=== PATIENT | female | born 1975 | race Caucasian/White ===

== ENCOUNTER 2017-01-11 15:11 | Emergency (ER) | payer MEDICAID ==
[~2017-01-11] VITALS: Ht 160 cm; Wt 70.3 kg
--- NOTE | ~2017-01-11 | CR63 ---
[facility]. [facility] A Service [facility] RADIOLOGY TEXT RESULTS PATIENT: KIMI MURGUIA LOCATION: SED : 77 UNIT #: [id number] AGE: [address]: Savannah Phelps MD SEX: F ORDER DR: [id number] [place] [id number] MR#: [id number] Acc #: [id number] NAME: KIMI MURGUIA : 1975 SEX: F STUDY DATE/TIME: 01/11/2017 16:20 UNIT: SED ROOM: STUDY DESCRIPTION: CR Chest 2 View Attending Physician: Savannah Phelps M.D. Ordering Physician: Savannah Phelps M.D. Primary Care Physician: Rosalina Emmanuel M.D. MEDICAL IMAGING REPORT This report is preliminary unless electronic signature is present. EXAM PA and lateral chest, 01/11 COMPARISON 04/14/2016 INDICATIONS Cough, fever, back pain for 3 days. FINDINGS PA and lateral examination of the chest upright shows a good expansion of the parenchyma with a normal distribution of the pulmonary vascularity. There is no indication of congestion, effusion, infiltrate, tumor, or nodular density. The pleural reflections and diaphragmatic contours are normal. The cardiac silhouette and mediastinal anatomy is within normal limits. IMPRESSION Normal chest. Dictated by... Storm Tang M.D. THIS IS AN ELECTRONICALLY VERIFIED REPORT Storm Tang M.D. at 01/13/2017 6:04 AM FEL/psc TD: 01/12/2017 03:37 JOB #: [id number] [facility] A Service [facility] RADIOLOGY TEXT RESULTS PATIENT: KIMI MURGUIA LOCATION: SED : [birth year] UNIT #: [id number] AGE: [address]: Savannah Phelps MD SEX: F ORDER DR: MEDICAL IMAGING REPORT Page 1 of 1
[~2017-01-11 15:11] MED LIST: ACETAMINOPHEN PO; BACITRACIN500/UDPK1 TOP; CELEXA20 MG PO; DICLOFENAC PO; FLONASE 0.05% N16 G1; KEFLEX PO; LISINOPRIL-HCTZ1 T19 PO; MAGNESIUM100 MG PO; MULTI-DAY VITAM1 TAB PO; MULTI-VITAMIN1 EAC1 PO; NAPROXEN PO; NEXIUM PO; NO MEDICATIONS; OMEPRAZOLE40 M1 PO; PHENERGAN25 MG PO; SEROQUEL50 MG PO; TRUVADA TABLET1 TA1 PO; ULTRAM PO; ZYRTEC10 M2 PO
[2017-01-11 16:07] LABS: URINE SOURCE CLEAN CATCH
[2017-01-11 16:10] LABS: URINE APPEARANCE CLEAR; URINE BILIRUBIN NEG (NEG); URINE BLOOD TRACE-INTACT (NEG); URINE COLOR YELLOW; URINE GLUCOSE NEG (NORM); URINE KETONE NEG (NEG); URINE LEUKOCYTE ESTERASE NEG (NEG); URINE NITRATE NEG (NEG); URINE PH 6.5 (5-8); URINE PROTEIN NEG (NEG); URINE UROBILINOGEN 0.2 MG/DL (NORM)
[2017-01-11 16:13] LABS: MICRO INDICATED? YES
[2017-01-11 16:18] LABS: CULTURE INDICATED? NO; URINE BACTERIA NEG (NEG); URINE RBC 0-2 /[HPF] (0-2); URINE WBC 0-2 /[HPF] (0-5)
== END 2017-01-11 17:00 | disposition home or self-care (01) ==
LOC: SED 15:11
PROVIDERS: Student in an Organized Health Care Education/Training Program
DX: B34.9 Viral infection, unspecified (principal); K21.9 Gastro-esophageal reflux disease without esophagitis; I10 Essential (primary) hypertension; Z90.710 Acquired absence of both cervix and uterus; Z88.0 Allergy status to penicillin; Z88.5 Allergy status to narcotic agent; F17.200 Nicotine dependence, unspecified, uncomplicated; Z79.899 Other long term (current) drug therapy
CPT/HCPCS: 71020; 81003; 84703; 87651; 99284